=== PATIENT | female | born 1970 | race Caucasian/White ===

== ENCOUNTER → 2016-07-07 | Day surgery (SDC) | payer MEDICARE, MEDICAID ==
[~2016-07-07] VITALS: Ht 170.2 cm; Wt 107.7 kg
[~2016-07-07] MED LIST: *MEPERIDINE 25 MG INJ VIAL PERIprocedural Use ONLY ONE; *morphine SULFATE 8 MG/ML PERIprocedure ONLY ONE; ACETAMINOPHEN 1000 MG/100 ML VIAL IV ONE; ACETAMINOPHEN 1000 MG/100 ML VIAL IV SCH; AMIT8CAP6 PO; APREPITANT 40 MG CAP ONE; APREPITANT 40 MG CAP PO SCH; BUPIVACAINE/EPINEPHRINE 0.25% PF 30 ML VIAL INFIL ONE; CITA10TA4 PO; DO NOT ADM ANY ANTICOAGULANT DRUGS XX PRN; FAMOTIDINE 20 MG/2 ML VIAL ONE; INSULIN HUMAN REGULAR 1,000 UNITS/10 ML VIAL SQ PRN; LACTATED RINGER'S 1000 ML INJ 1,000 ML IV ONE; LACTATED RINGER'S 1000 ML IV SCH; METOPROLOL TARTRATE 25 MG TAB PO PRN; MIDAZOLAM HCL 2 MG/2 ML VIAL ONE; NEOSTIGMINE 3 MG/3 ML SYR IV ONE; ONDANSETRON HCL 4 MG/2 ML VIAL IV PUSH ONE; ONDANSETRON HCL 4 MG/2 ML VIAL IV PUSH PRN; ONDANSETRON HCL 4 MG/2 ML VIAL IV PUSH SCH; ONDANSETRON HCL 4 MG/2 ML VIAL ONE; PANT40TA3 PO; PROPOFOL 200 MG/20 ML AMP IV ONE; SODIUM CHLOR 0.9% 250 ML INJ 250 ML ONE; SODIUM CHLORID 0.9% 500 ML IV SCH; TOPA100T11 PO; VANCOMYCIN 1,250 MG/NS 250 ML (for 70-84 kg) IV SCH; VANCOMYCIN HCL 1000 MG VIAL ONE; fentaNYL CITRATE 250 MCG/5 ML AMP ONE; metroNIDAZOLE 500 MG INJ 100 ML IV ONE; metroNIDAZOLE 500 MG INJ 100 ML IV SCH; oxyCODONE/ACETAMINOPHEN 5 MG/325 MG TAB PO PRN
[2016-07-07 08:08] VITALS: BP 150/90; PULSE 62; RESP 20; O2SAT 100
[2016-07-07 14:32] VITALS: BP 122/65; PULSE 76; RESP 20; TEMP 96.9; O2SAT 98
--- NOTE | 2016-07-14 09:39 | MP ---
cc: DEONDRE GARCIA DATE OF SURGERY: 07/07/2016 1970 PREOPERATIVE DIAGNOSIS Abdominal pain. POSTOPERATIVE DIAGNOSIS Abdominal pain. PROCEDURE Laparoscopy with lysis of adhesion. SURGEON Deondre Garcia MD ANESTHESIA General endotracheal anesthesia. ESTIMATED BLOOD LOSS Scant. INDICATION This is a patient who underwent a laparoscopic vertical sleeve gastrectomy approximately 5 months ago. She was doing well, but has been unable to progress to solid foods. The patient had an endoscopy that revealed angulation of her stomach. She was brought in for evaluation laparoscopically after obtaining informed consent. FINDINGS Adhesions of stomach, to left lobe of the liver. No evidence of kinking or angulation of the stomach. The sleeve appeared to be in good orientation. The patient did have adhesions in her upper abdomen around her first portion of her duodenum as well as adhesions of her small bowel to the abdominal wall in the right lower quadrant. It was felt that these may have contributed to the patient's inability to eat and as such they were . SPECIMEN None. COMPLICATIONS None. OPERATION The patient was brought to the operating room, placed on the operating table in supine position. Bilateral sequential inflation device placed on lower extremity, general anesthesia instituted. The abdomen was prepped and draped sterilely. A point in the patient's periumbilical region was anesthetized with 0.25% Marcaine with epinephrine. A skin incision was made. A 5 mm OptiVu port was placed under direct vision and pneumoperitoneum created. Under direct vision a 5 mm left upper quadrant, a 5 mm right upper quadrant port was placed. Prior to placement of all ports the skin and peritoneum were anesthetized with 0.25% Marcaine with epinephrine. The abdominal cavity was inspected, findings as above. Using sharp dissection the first and second portion of the duodenum was freed from the liver. Care was taken not to injure the bowel during the dissection. Then attention was focused in the lower abdomen where the patient's small bowel was adhesed to the abdominal wall, was sharply using care not to enter the small bowel during dissection. Once adhesiolysis was completed the operation was terminated. CO2 was released. All ports were removed. All skin incisions were closed with 4-0 Monocryl. The abdominal wall was cleaned and sterile dressing was placed. The patient was awakened and taken to the recovery room stable. MD WHIT Edgar/HARJINDER /4:08 PM /9:26 AM
== END | disposition home or self-care (01) ==
LOC: HSDC 07:20
PROVIDERS: ATTEND Surgery
DX: K66.0 Peritoneal adhesions (postprocedural) (postinfection) (principal); R11.2 Nausea with vomiting, unspecified; R63.4 Abnormal weight loss; Z98.84 Bariatric surgery status
CPT/HCPCS: 00840; 44180; J0131; J2175; J2250; J2270; J2405; J2710; J3010; J3370; J7050; J7120; J8501

== ENCOUNTER 2016-08-16 19:50 | Emergency (ER) | payer MEDICARE, MEDICAID ==
[~2016-08-16] VITALS: Ht 170.2 cm; Wt 105.5 kg
[~2016-08-16 19:50] MED LIST changes: -*MEPERIDINE 25 MG INJ VIAL PERIprocedural Use ONLY ONE; -*morphine SULFATE 8 MG/ML PERIprocedure ONLY ONE; -ACETAMINOPHEN 1000 MG/100 ML VIAL IV ONE; -ACETAMINOPHEN 1000 MG/100 ML VIAL IV SCH; -APREPITANT 40 MG CAP ONE; -APREPITANT 40 MG CAP PO SCH; -BUPIVACAINE/EPINEPHRINE 0.25% PF 30 ML VIAL INFIL ONE; -DO NOT ADM ANY ANTICOAGULANT DRUGS XX PRN; -FAMOTIDINE 20 MG/2 ML VIAL ONE; -INSULIN HUMAN REGULAR 1,000 UNITS/10 ML VIAL SQ PRN; -LACTATED RINGER'S 1000 ML INJ 1,000 ML IV ONE; -LACTATED RINGER'S 1000 ML IV SCH; -METOPROLOL TARTRATE 25 MG TAB PO PRN; -MIDAZOLAM HCL 2 MG/2 ML VIAL ONE; -NEOSTIGMINE 3 MG/3 ML SYR IV ONE; -ONDANSETRON HCL 4 MG/2 ML VIAL IV PUSH ONE; -ONDANSETRON HCL 4 MG/2 ML VIAL IV PUSH PRN; -ONDANSETRON HCL 4 MG/2 ML VIAL IV PUSH SCH; -ONDANSETRON HCL 4 MG/2 ML VIAL ONE; -PROPOFOL 200 MG/20 ML AMP IV ONE; -SODIUM CHLOR 0.9% 250 ML INJ 250 ML ONE; -SODIUM CHLORID 0.9% 500 ML IV SCH; -VANCOMYCIN 1,250 MG/NS 250 ML (for 70-84 kg) IV SCH; -VANCOMYCIN HCL 1000 MG VIAL ONE; -fentaNYL CITRATE 250 MCG/5 ML AMP ONE; -metroNIDAZOLE 500 MG INJ 100 ML IV ONE; -metroNIDAZOLE 500 MG INJ 100 ML IV SCH; -oxyCODONE/ACETAMINOPHEN 5 MG/325 MG TAB PO PRN
[2016-08-16 19:52] VITALS: BP 164/86; PULSE 86; RESP 16; TEMP 98.5; O2SAT 100
[2016-08-16 20:25] VITALS: BP 140/85; PULSE 89; RESP 18; O2SAT 95
[2016-08-16] MEDS ORDERED: SODIUM CHLORIDE 0.9% FLUSH 5 ML FLUSH IVF PRN (20:30)
--- NOTE | 2016-08-16 20:38 | PD ---
HPI Chief Complaint: Chest Pain Time Seen by Provider: 20:32 Travel History International Travel<30 days: No Contact w/Intl Traveler<30days: No Traveled to known affect area: No History of Present Illness HPI 46-year-old female presents to the emergency department for evaluation of intermittent midsternal chest pain that is been ongoing for 1 month. She states is a squeezing feeling a physician with palpitations and dizziness. Patient currently rates her chest pain 5/10. Shows report history of increasing migraines, but states that she has a history of migraines and her Topamax was recently decreased. She states that she currently has a minor headache at this time is consistent with her typical migraine headaches. She denies any nausea or vomiting. Patient does report a history of a blood clot in her abdomen. She was on Xarelto up to 2 months ago and then was taken off. Patient also states she had her injury on her abdomen for adhesions approximately one month ago. Patient denies any cough or congestion. 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 PFSH Past Medical History Hx Anticoagulant Therapy: No (OFF FOR 1-2 MTHS) Asthma: No Autoimmune Disease: No Bipolar Disorder: Yes Anxiety: Yes Depression: Yes Cancer: Yes (colon cancer ) Cardiovascular Problems: Yes COPD: No Diabetes: No Diminished Hearing: No Endocrine: No Gastrointestinal Disorders: Yes (nv for several months, acid reflux) GERD: Yes Genitourinary: No Hepatitis: No Hiatal Hernia: Yes (sliding hiatal hernia) Immune Disorder: No Musculoskeletal: Yes (chronic back pain) Neurologic: No Psychiatric: Yes Reproductive: No Respiratory: No Migraines: Yes (hx of ) Sleep Apnea: No Thyroid Disease: No ?: Not Menopausal: No : 1 Para: 1 Tubal Ligation: Yes (1995) Past Surgical History Abdominal Surgery: Yes (lap band, gastric sleeve, colon resection 2013, c section, cholecystectomy) AICD: No Body Medical Devices: GASTRIC SLEEVE Cardiac Surgery: No Section: Yes (X1) Cholecystectomy: Yes (2002) Ear Surgery: No Endocrine Surgery: No Eye Surgery: No Genitourinary Surgery: No Gynecologic Surgery: Yes (tubal ligation) Joint Replacement: No Oral Surgery: No Pacemaker: No Other Surgery: Yes (CHRONIC DYSMENORRHEA & CRAMPING MONTHLY BEFORE MENSTRATION) Social History Alcohol Use: No Tobacco Use: No Substance Use: No Allergies-Medications (Allergen,Severity, Reaction): Coded Allergies: Sulfa (Verified Allergy, Severe, Rash, 08/16/16) Morphine (Verified Allergy, Unknown, Respiratory Failure, 08/16/16) Penicillin (Verified Allergy, Unknown, UNKNOWN REACTION, 08/16/16) Aspirin (Verified Adverse Reaction, Severe, VOMITING, 08/16/16) Red Dyes - Various (Verified Adverse Reaction, Severe, "GIVES ME MIGRAINES ", 08/16/16) Reported Meds & Prescriptions Reported Meds & Active Scripts Active Reported Citalopram (Citalopram Hydrobromide) 10 Mg Tab 10 Mg PO HS Pantoprazole (Pantoprazole Sodium) 40 Mg Tab 40 Mg PO HS Amitiza (Lubiprostone) 8 Mcg Cap 8 Mg PO HS Topamax (Topiramate) 100 Mg Tab 100 Mg PO HS Review of Systems Except as stated in HPI: all other systems reviewed are Neg Physical Exam Narrative GENERAL: Well-developed well-nourished female patient, ambulatory. Afebrile. SKIN: Warm and dry. HEAD: Normocephalic. Atraumatic. EYES: No scleral icterus. No injection or drainage. NECK: Supple, trachea midline. No JVD or lymphadenopathy. CARDIOVASCULAR: Regular rate and rhythm without murmurs, gallops, or rubs. RESPIRATORY: Breath sounds equal bilaterally. No accessory muscle use. Lungs sounds are clear to auscultation. GASTROINTESTINAL: Abdomen soft, non-tender, nondistended. MUSCULOSKELETAL: No cyanosis, or edema. Midsternal chest pain is reproducible with palpation. BACK: Nontender without obvious deformity. No CVA tenderness. Data Data Last Documented VS Vital Signs Date Time Temp Pulse Resp B/P Pulse Ox O2 Delivery O2 Flow Rate FiO2 08/16/16 20:25 89 18 140/85 95 08/16/16 20:16 Room Air 08/16/16 19:52 98.5 Orders Electrocardiogram (08/16/16 20:30) Basic Metabolic Panel (Bmp) (08/16/16 20:30) Ckmb (Isoenzyme) Profile (08/16/16 20:30) Complete Blood Count With Diff (08/16/16 20:30) D-Dimer (08/16/16 20:30) Magnesium (Mg) (08/16/16 20:30) Prothrombin Time / Inr (Pt) (08/16/16 20:30) Act Partial Throm Time (Ptt) (08/16/16 20:30) Troponin I (08/16/16 20:30) Chest, Single Ap (08/16/16 20:30) Ecg Monitoring (08/16/16 20:30) Bilateral Bp Monitoring (08/16/16 20:30) Iv Access Insert/Monitor (08/16/16 20:30) Oximetry (08/16/16 20:30) Oxygen Administration (08/16/16 20:30) Sodium Chloride 0.9% Flush (Ns Flush) (08/16/16 20:30) Labs Laboratory Tests Test 08/16/16 20:30 White Blood Count 6.2 TH/MM3 Red Blood Count 4.91 MIL/MM3 Hemoglobin 13.5 GM/DL Hematocrit 40.4 % Mean Corpuscular Volume 82.3 FL Mean Corpuscular Hemoglobin 27.5 PG Mean Corpuscular Hemoglobin 33.4 % Concent Red Cell Distribution Width 16.3 % Platelet Count 214 TH/MM3 Mean Platelet Volume 7.8 FL Neutrophils (%) (Auto) 62.0 % Lymphocytes (%) (Auto) 28.5 % Monocytes (%) (Auto) 8.0 % Eosinophils (%) (Auto) 1.1 % Basophils (%) (Auto) 0.4 % Neutrophils # (Auto) 3.8 TH/MM3 Lymphocytes # (Auto) 1.8 TH/MM3 Monocytes # (Auto) 0.5 TH/MM3 Eosinophils # (Auto) 0.1 TH/MM3 Basophils # (Auto) 0.0 TH/MM3 CBC Comment DIFF FINAL Differential Comment Prothrombin Time 10.9 SEC Prothromb Time International 1.0 RATIO Ratio Activated Partial 24.1 SEC Thromboplast Time D-Dimer Quantitative (PE/DVT) 0.26 MG/L FEU Sodium Level 138 MEQ/L Potassium Level 3.8 MEQ/L Chloride Level 107 MEQ/L Carbon Dioxide Level 24.6 MEQ/L Anion Gap 6 MEQ/L Blood Urea Nitrogen 18 MG/DL Creatinine 0.83 MG/DL Estimat Glomerular Filtration 74 ML/MIN Rate Random Glucose 95 MG/DL Calcium Level 8.9 MG/DL Magnesium Level 2.5 MG/DL Total Creatine Kinase 58 U/L Troponin I LESS THAN 0.02 NG/ML MDM Medical Decision Making Medical Screen Exam Complete: Yes Emergency Medical Condition: Yes Medical Record Reviewed: Yes Interpretation(s) Last Impressions Chest X-Ray 08/16/162029 Signed Impressions: Service Date/Time: Tuesday, August 16, 2016 20:29 - CONCLUSION: No acute disease. Ronnie Medrano MD Differential Diagnosis ACS vs. anxiety vs. GERD vs. chest wall pain vs. PE Narrative Course 46-year-old female presents to the emergency department for evaluation of chest pain is been intermittent over the past month associated palpitations and dizziness. Patient is allergic to aspirin and has not been given aspirin at this time due to allergy. Patient does report a history of blood clot has been off of Xarelto for 2 months. EKG, CBC, BMP, magnesium, CK, troponin, d-dimer, PTT, PTT/INR, chest x-ray are ordered and pending. EKG shows sinus rhythm, heart rate 72, no acute ST changes. CBC shows no acute abnormality. BMP is unremarkable. CK is 58. Troponin is less than 0.02. Magnesium is 2.5. D-dimer is normal at 0.26. Coags show no acute abnormality. Chest x-ray shows no acute disease. Laboratory findings and physical exam are reassuring. Patient's chest pain is easily reproducible palpation and patient has had a 4 month. She states she has appointment with her primary care physician and operator automated process next week. Patient would like to be discharged home. I think this is reasonable. Patient is instructed to return for any acute worsening of symptoms. Patient is agreeable. The patient was discharged in stable condition with instructions, including return instructions and follow up instructions. Diagnosis Primary Impression: Chest wall pain Referrals: Primary Care Physician call for appointment Patient Instructions: Chest Wall Pain (ED), General Instructions Additional Instructions: Follow-up with your primary care physician. Return to the emergency department for any acute worsening of symptoms. Med/Other Pt SpecificInfo: No Change to Meds Disposition: 01 DISCHARGE HOME Condition: Stable Clara Rosario MG Aug 16, 2016 20:38
[2016-08-16 21:01] LABS: AUTOMATED NEUTROPHIL # 3.8 TH/MM3 (1.8-7.7); BASOPHIL % 0.4 % (0.0-2.0); EOSINOPHIL # 0.1 TH/MM3 (0-0.4); EOSINOPHIL % 1.1 % (0.0-4.0); HEMATOCRIT 40.4 % (35.0-46.0); HEMO FLAGS DIFF FINAL; LYMPH % 28.5 % (9.0-44.0); LYMPHOCYTE # 1.8 TH/MM3 (1.0-4.8); MEAN CELL VOLUME 82.3 FL (80.0-100.0); MEAN CORPUSCULAR HEMOGLOBIN 27.5 PG (27.0-34.0); MEAN CORPUSCULAR HGB CONC 33.4 % (32.0-36.0); PLATELET COUNT 214 TH/MM3 (150-450); RED BLOOD COUNT 4.91 MIL/MM3 (4.00-5.30); RED CELL DISTRIBUTION WIDTH 16.3 % (11.6-17.2); WHITE BLOOD COUNT 6.2 TH/MM3 (4.0-11.0)
--- NOTE | 2016-08-16 21:03 | RADRPT ---
EXAM DATE/TIME: 08/16/2016 20:29 [facility] COMPARISON: CHEST SINGLE AP, November 05, 2015, 16:23. INDICATIONS : Chest Pain MEDICAL HISTORY : None. SURGICAL HISTORY : None. ENCOUNTER: Initial ACUITY: 1 day PAIN SCORE: 6/10 LOCATION: Bilateral chest FINDINGS: A single view of the chest demonstrates the lungs to be symmetrically aerated without evidence of mas s, infiltrate or effusion. The cardiomediastinal contours are unremarkable. Osseous structures are intact. CONCLUSION: No acute disease. Ronnie Medrano MD on August 16, 2016 at 21:00 Board Certified Radiologist. This report was verified electronically.
[2016-08-16 21:18] LABS: APTT (PATIENT) 24.1 SEC (24.3-30.1); PROTHROMBIN TIME - PATIENT 10.9 SEC (9.8-11.6)
[2016-08-16 21:29] LABS: ANION GAP 6 MEQ/L (5-15); BICARBONATE 24.6 MEQ/L (21.0-32.0); BLOOD UREA NITROGEN 18 MG/DL (7-18); CHLORIDE 107 MEQ/L (98-107); GLOMERULAR FILTRATION RATE 74 ML/MIN (>89); MAGNESIUM 2.5 MG/DL (1.5-2.5); POTASSIUM 3.8 MEQ/L (3.5-5.1); SODIUM (NA) 138 MEQ/L (136-145)
[2016-08-16 21:45] LABS: CREATINE KINASE 58 U/L (26-192)
--- NOTE | 2016-08-16 22:21 | PD ---
Physical Exam Date Seen by Provider: Aug 16, 2016 Narrative Patient presented for shortness of breath, dizziness, palpitations Data Data Last Documented VS Vital Signs Date Time Temp Pulse Resp B/P Pulse Ox O2 Delivery O2 Flow Rate FiO2 08/16/16 20:25 89 18 140/85 95 08/16/16 20:16 Room Air 08/16/16 19:52 98.5 Orders Electrocardiogram (08/16/16 20:30) Basic Metabolic Panel (Bmp) (08/16/16 20:30) Ckmb (Isoenzyme) Profile (08/16/16 20:30) Complete Blood Count With Diff (08/16/16 20:30) D-Dimer (08/16/16 20:30) Magnesium (Mg) (08/16/16 20:30) Prothrombin Time / Inr (Pt) (08/16/16 20:30) Act Partial Throm Time (Ptt) (08/16/16 20:30) Troponin I (08/16/16 20:30) Chest, Single Ap (08/16/16 20:30) Ecg Monitoring (08/16/16 20:30) Bilateral Bp Monitoring (08/16/16 20:30) Iv Access Insert/Monitor (08/16/16 20:30) Oximetry (08/16/16 20:30) Oxygen Administration (08/16/16 20:30) Sodium Chloride 0.9% Flush (Ns Flush) (08/16/16 20:30) Labs Laboratory Tests Test 08/16/16 20:30 White Blood Count 6.2 TH/MM3 Red Blood Count 4.91 MIL/MM3 Hemoglobin 13.5 GM/DL Hematocrit 40.4 % Mean Corpuscular Volume 82.3 FL Mean Corpuscular Hemoglobin 27.5 PG Mean Corpuscular Hemoglobin 33.4 % Concent Red Cell Distribution Width 16.3 % Platelet Count 214 TH/MM3 Mean Platelet Volume 7.8 FL Neutrophils (%) (Auto) 62.0 % Lymphocytes (%) (Auto) 28.5 % Monocytes (%) (Auto) 8.0 % Eosinophils (%) (Auto) 1.1 % Basophils (%) (Auto) 0.4 % Neutrophils # (Auto) 3.8 TH/MM3 Lymphocytes # (Auto) 1.8 TH/MM3 Monocytes # (Auto) 0.5 TH/MM3 Eosinophils # (Auto) 0.1 TH/MM3 Basophils # (Auto) 0.0 TH/MM3 CBC Comment DIFF FINAL Differential Comment Prothrombin Time 10.9 SEC Prothromb Time International 1.0 RATIO Ratio Activated Partial 24.1 SEC Thromboplast Time D-Dimer Quantitative (PE/DVT) 0.26 MG/L FEU Sodium Level 138 MEQ/L Potassium Level 3.8 MEQ/L Chloride Level 107 MEQ/L Carbon Dioxide Level 24.6 MEQ/L Anion Gap 6 MEQ/L Blood Urea Nitrogen 18 MG/DL Creatinine 0.83 MG/DL Estimat Glomerular Filtration 74 ML/MIN Rate Random Glucose 95 MG/DL Calcium Level 8.9 MG/DL Magnesium Level 2.5 MG/DL Total Creatine Kinase 58 U/L Troponin I LESS THAN 0.02 NG/ML MDM Supervised Visit with AGUSTÍN: Yes Narrative Course I, Dr. Riley, have reviewed the advance practice practitioner's documentation and am in agreement, met with the patient face to face, made the diagnosis, and the medical decision making was done by me. *My assessment and Findings: The patient was very nervous. She does not appear to be having any difficulty breathing. Diagnosis Primary Impression: Chest wall pain Referrals: Primary Care Physician call for appointment Patient Instructions: General Instructions, Chest Wall Pain (ED) Additional Instruction: Follow-up with your primary care physician. Return to the emergency department for any acute worsening of symptoms. Disposition: 01 DISCHARGE HOME Condition: Stable Mirian Riley MD Aug 16, 2016 22:21
[2016-08-16 22:31] VITALS: O2SAT 97
--- NOTE | 2016-08-17 14:10 | EKG ---
Date Performed: 08/16/2016 Time Performed: 20:30:57 PTAGE: 46 years EKG: Sinus rhythm Since previous tracing, no significant change noted NORMAL ECG PREVIOUS TRACING : 08/03/2003 10.53 DOCTOR: Long Thomas Interpretating Date/Time 08/17/2016 15:39:08
== END 2016-08-16 22:50 | disposition home or self-care (01) ==
LOC: NEPC 19:50
DX: R07.89 Other chest pain (principal); R00.2 Palpitations; R42 Dizziness and giddiness; R51 Headache; Z79.899 Other long term (current) drug therapy; Z85.038 Personal history of other malignant neoplasm of large intestine; Z86.79 Personal history of other diseases of the circulatory system; Z87.19 Personal history of other diseases of the digestive system; Z87.39 Personal history of other diseases of the musculoskeletal system and connective tissue; Z86.69 Personal history of other diseases of the nervous system and sense organs; Z86.59 Personal history of other mental and behavioral disorders
CPT/HCPCS: 71010; 80048; 82550; 83735; 84484; 85025; 85379; 85610; 85730; 93005

== ENCOUNTER 2017-08-24 13:30 | Emergency (ER) | payer MEDICARE, MEDICAID ==
[~2017-08-24 13:30] MED LIST changes: -TOPA100T11 PO; +TOPI100 PO
[2017-08-24] MEDS ORDERED: IOHEXOL 350 MG/ML 10 ML VIAL (for RAD DIAG) IVCONTRAST ONE (13:31)
[2017-08-24 13:34] VITALS: BP 127/66; PULSE 77; RESP 16; TEMP 98.4; O2SAT 100
[2017-08-24 14:10] LABS: AUTOMATED NEUTROPHIL # 4.2 TH/MM3 (1.8-7.7); BASOPHIL % 0.6 % (0.0-2.0); EOSINOPHIL # 0.1 TH/MM3 (0-0.4); EOSINOPHIL % 1.1 % (0.0-4.0); HEMATOCRIT 38.1 % (35.0-46.0); HEMOGLOBIN 12.5 GM/DL (11.6-15.3); LYMPHOCYTE # 1.2 TH/MM3 (1.0-4.8); MEAN CELL VOLUME 81.7 FL (80.0-100.0); MEAN CORPUSCULAR HEMOGLOBIN 26.9 PG (27.0-34.0); MEAN CORPUSCULAR HGB CONC 32.9 % (32.0-36.0); MEAN PLATELET VOLUME 7.6 FL (7.0-11.0); MONO % 10.2 % (0.0-8.0); MONOCYTE # 0.6 TH/MM3 (0-0.9); NEUT % 68.1 % (16.0-70.0); PLATELET COUNT 193 TH/MM3 (150-450); RED BLOOD COUNT 4.66 MIL/MM3 (4.00-5.30); RED CELL DISTRIBUTION WIDTH 15.9 % (11.6-17.2); WHITE BLOOD COUNT 6.2 TH/MM3 (4.0-11.0)
[2017-08-24 14:14] LABS: BILIRUBIN, URINE NEG (NEG); BLOOD, URINE NEG (NEG); GLUCOSE,URINE NEG (NEG); KETONE, URINE NEG (NEG); MUCUS URINE FEW /lpf (OCC); NITRITE,URINE NEG (NEG); PH, URINE 6.5 (5.0-8.5); SQUAMOUS EPITHELIAL CELL URINE 3 /hpf (0-5); URINE COLOR YELLOW (YELLW/STRAW); URINE LEUKOCYTE ESTERASE SMALL (NEG)
[2017-08-24] MEDS ORDERED: ONDANSETRON HCL 4 MG/2 ML VIAL IV PUSH ONE (14:15)
[2017-08-24] MEDS ORDERED: HYDROmorphone HCL PF 2 MG/ML VIAL IVS ONE (14:15)
[2017-08-24] MEDS ORDERED: SODIUM CHLOR 0.9% 1000 ML INJ 1,000 ML IV ONE (14:15)
--- NOTE | 2017-08-24 14:26 | PD ---
HPI Chief Complaint: Abdominal Pain Time Seen by Provider: 14:06 Travel History International Travel<30 days: No Contact w/Intl Traveler<30days: No Traveled to known affect area: No History of Present Illness HPI This is a 47-year-old female with a history of colon cancer, gastric sleeve placement, who presents today with complaints of right lower quadrant pain on and off 3 months. The patient reports the pain as worse over the last 24 hours. She states that she was seen at [facility] in [place] and had at that time had a CAT scan done that showed nothing. She states they told her that there was no obvious findings. The patient does give history that she has had previous abdominal surgery with adhesions. She reports she is cancer free from her colon cancer. She states that they removed a portion of her colon. There is no reported fevers, chills. The patient states that she was given pain medicine upon discharge last night but there was no diagnosis. I informed her at times that there is no diagnosis found however we order the test to rule out bad pathology. PFSH Past Medical History Hx Anticoagulant Therapy: No (OFF FOR 1-2 MTHS) Asthma: No Autoimmune Disease: No Bipolar Disorder: Yes Anxiety: Yes Depression: Yes Cancer: Yes (colon cancer ) Cardiovascular Problems: Yes COPD: No Diabetes: No Diminished Hearing: No Endocrine: No Gastrointestinal Disorders: Yes (nv for several months, acid reflux) GERD: Yes Genitourinary: No Hepatitis: No Hiatal Hernia: Yes (sliding hiatal hernia) Immune Disorder: No Musculoskeletal: Yes (chronic back pain) Neurologic: No Psychiatric: Yes Reproductive: No Respiratory: No Migraines: Yes Sleep Apnea: No Thyroid Disease: No ?: Not Menopausal: No : 1 Para: 1 Tubal Ligation: Yes (1995) Past Surgical History Abdominal Surgery: Yes (lap band, gastric sleeve, colon resection 2013, c section, cholecystectomy) AICD: No Body Medical Devices: GASTRIC SLEEVE Cardiac Surgery: No Section: Yes (X1) Cholecystectomy: Yes (2002) Ear Surgery: No Endocrine Surgery: No Eye Surgery: No Genitourinary Surgery: No Gynecologic Surgery: Yes (tubal ligation) Joint Replacement: No Oral Surgery: No Pacemaker: No Other Surgery: Yes (CHRONIC DYSMENORRHEA & CRAMPING MONTHLY BEFORE MENSTRATION) Social History Alcohol Use: No Tobacco Use: No Substance Use: No Allergies-Medications (Allergen,Severity, Reaction): Coded Allergies: Sulfa (Sulfonamide Antibiotics) (Unverified Allergy, Severe, Rash, 02/10/17 ) morphine (Unverified Allergy, Unknown, Respiratory Failure, 02/10/17) penicillin G (Unverified Allergy, Unknown, UNKNOWN REACTION, 02/10/17) aspirin (Unverified Adverse Reaction, Severe, VOMITING, 02/10/17) red dye (Unverified Adverse Reaction, Severe, "GIVES ME MIGRAINES", ) Reported Meds & Prescriptions Reported Meds & Active Scripts Active Hydrocodone-Acetaminophen 5-325 mg Tab 1 Tab PO Q6H PRN 4 Days Flagyl (Metronidazole) 500 Mg Tab 500 Mg PO TID 10 Days Cipro (Ciprofloxacin HCl) 500 Mg Tab 500 Mg PO BID 10 Days Reported Citalopram (Citalopram Hydrobromide) 10 Mg Tab 10 Mg PO HS Pantoprazole (Pantoprazole Sodium) 40 Mg Tab 40 Mg PO HS Amitiza (Lubiprostone) 8 Mcg Cap 8 Mg PO HS Topamax (Topiramate) 100 Mg Tab 100 Mg PO HS Review of Systems Except as stated in HPI: all other systems reviewed are Neg General / Constitutional: No: Fever HENT: No: Headaches, Lightheadedness Cardiovascular: No: Chest Pain or Discomfort, Palpitations Respiratory: No: Cough, Shortness of Breath Gastrointestinal: Positive: Nausea, Vomiting, Abdominal Pain (Right lower quadrant), Constipation Genitourinary: No: Frequency, Dysuria Musculoskeletal: No: Weakness, Pain Neurologic: No: Weakness, Dizziness, Headache Physical Exam Narrative GENERAL: Well-developed well-nourished female in no acute respiratory distress. SKIN: Focused skin assessment warm/dry. HEAD: Atraumatic. Normocephalic. EYES: No scleral icterus. No injection or drainage. ENT: No nasal bleeding or discharge. Mucous membranes pink and moist. NECK: Trachea midline. Supple. CARDIOVASCULAR: Regular rate and rhythm. No murmur appreciated. RESPIRATORY: No accessory muscle use. Clear to auscultation. Breath sounds equal bilaterally. GASTROINTESTINAL: Abdomen soft, nondistended. There is tenderness to palpation in her right lower quadrant. There is mild guarding with no rebound. No pulsatile masses appreciated. MUSCULOSKELETAL: No obvious deformities. No clubbing. No cyanosis. No edema. NEUROLOGICAL: Awake and alert. No obvious cranial nerve deficits. Motor grossly within normal limits. Normal speech. Data Data Last Documented VS Vital Signs Date Time Temp Pulse Resp B/P (MAP) Pulse Ox O2 Delivery O2 Flow Rate FiO2 08/24/17 13:34 98.4 77 16 127/66 (86) 100 Orders Orders Complete Blood Count With Diff (08/24/17 13:37) Comprehensive Metabolic Panel (08/24/17 13:37) Urinalysis - C+S If Indicated (08/24/17 13:37) Lipase (08/24/17 13:37) Ct Abd/Pel W Iv Contrast(Rout) (08/24/17 14:06) Iv Access Insert/Monitor (08/24/17 14:06) Ecg Monitoring (08/24/17 14:06) Oximetry (08/24/17 14:06) Sodium Chlor 0.9% 1000 Ml Inj (Ns 1000 M (08/24/17 14:15) Ondansetron Inj (Zofran Inj) (08/24/17 14:15) Hydromorphone Pf Inj (Dilaudid Pf Inj) (08/24/17 14:15) Oral Contrast - Adult (08/24/17 14:23) Diatrizoate Liq ( Gastromarya Liq) (08/24/17 14:28) Iohexol 350 Inj (Omnipaque 350 Inj) (08/24/17 13:31) Labs Laboratory Tests Test 08/24/17 13:54 08/24/17 13:58 Urine Color YELLOW Urine Turbidity CLEAR Urine pH 6.5 Urine Specific [place] 1.024 Urine Protein NEG mg/dL Urine Glucose (UA) NEG mg/dL Urine Ketones NEG mg/dL Urine Occult Blood NEG Urine Nitrite NEG Urine Bilirubin NEG Urine Urobilinogen LESS THAN 2.0 MG/DL Urine Leukocyte Esterase SMALL Urine RBC 1 /hpf Urine WBC 1 /hpf Urine Squamous Epithelial Cells 3 /hpf Urine Mucus FEW /lpf Microscopic Urinalysis Comment CULT NOT INDICATED White Blood Count 6.2 TH/MM3 Red Blood Count 4.66 MIL/MM3 Hemoglobin 12.5 GM/DL Hematocrit 38.1 % Mean Corpuscular Volume 81.7 FL Mean Corpuscular Hemoglobin 26.9 PG Mean Corpuscular Hemoglobin Concent 32.9 % Red Cell Distribution Width 15.9 % Platelet Count 193 TH/MM3 Mean Platelet Volume 7.6 FL Neutrophils (%) (Auto) 68.1 % Lymphocytes (%) (Auto) 20.0 % Monocytes (%) (Auto) 10.2 % Eosinophils (%) (Auto) 1.1 % Basophils (%) (Auto) 0.6 % Neutrophils # (Auto) 4.2 TH/MM3 Lymphocytes # (Auto) 1.2 TH/MM3 Monocytes # (Auto) 0.6 TH/MM3 Eosinophils # (Auto) 0.1 TH/MM3 Basophils # (Auto) 0.0 TH/MM3 CBC Comment DIFF FINAL Differential Comment Blood Urea Nitrogen 14 MG/DL Creatinine 0.61 MG/DL Random Glucose 96 MG/DL Total Protein 7.9 GM/DL Albumin 3.8 GM/DL Calcium Level 8.7 MG/DL Alkaline Phosphatase 96 U/L Aspartate Amino Transf (AST/SGOT) 19 U/L Alanine Aminotransferase (ALT/SGPT) 20 U/L Total Bilirubin 0.4 MG/DL Sodium Level 138 MEQ/L Potassium Level 4.1 MEQ/L Chloride Level 109 MEQ/L Carbon Dioxide Level 24.7 MEQ/L Anion Gap 4 MEQ/L Estimat Glomerular Filtration Rate 105 ML/MIN Lipase 130 U/L MDM Medical Decision Making Medical Screen Exam Complete: Yes Emergency Medical Condition: Yes Differential Diagnosis Appendicitis versus partial bowel obstruction versus adhesions versus gastroenteritis versus kidney stone Narrative Course This is a 47-year-old female history of colon cancer, presents today with complaints of right lower quadrant pain. The patient was seen yesterday at [facility] and had a CT scan that they report showed no findings. She presents today stating that she is still having right lower quadrant pain. There is no reported fevers, chills. There is no reported nausea vomiting diarrhea. The patient in fact states he gets constipation. White blood cell count was within normal limits. CT scan of the abdomen pelvis repeat showed evidence of enteritis in the right lower quadrant. There was postsurgical signs as well. There is no evidence of perforation or abscess. I discussed findings with the patient told her that we will start her on Cipro and Flagyl. I enforced the need for her to follow-up with GI doctor for follow- up. While this is possibly infectious, this could be recurrent cancer and with this, and the need for the follow-up with her GI specialist. The patient states she will make an appointment. She is instructed to return if she does any increased pain, fevers chills, vomiting diarrhea. I will give her 4 day of hydrocodone. Diagnosis Primary Impression: Enteritis Additional Impression: History of colon cancer Additional Instructions: Return if increased pain, fevers chills, nausea vomiting or any other recent concerns you. Follow-up with your GI specialist. Take antibiotics as prescribed. Hold your citalopram until antibiotics are complete. Med/Other Pt SpecificInfo: Prescription(s) given Scripts Hydrocodone-Acetaminophen (Hydrocodone-Acetaminophen) 5-325 mg Tab 1 TAB PO Q6H Y for PAIN for 4 Days, #16 TAB 0 Refills Prov: Kodak Gonzalez MD 08/24/17 Metronidazole (Flagyl) 500 Mg Tab 500 MG PO TID for Infection for 10 Days, TAB 0 Refills Prov: Kodak Gonzalez MD 08/24/17 Ciprofloxacin (Cipro) 500 Mg Tab 500 MG PO BID for Infection for 10 Days, #20 TAB 0 Refills Prov: Kodak Gonzalez MD 08/24/17 Disposition: 01 DISCHARGE HOME Condition: Stable Kodak Gonzalez MD Aug 24, 2017 14:26
[2017-08-24] MEDS ORDERED: DIATRIZOATE MEGLUM/DIATRIZOATE SOD 9 ML CUP ONE (14:28)
[2017-08-24 15:32] LABS: ALBUMIN 3.8 GM/DL (3.4-5.0); AST (GOT) 19 U/L (15-37); BICARBONATE 24.7 MEQ/L (21.0-32.0); BLOOD UREA NITROGEN 14 MG/DL (7-18); CALCIUM 8.7 MG/DL (8.5-10.1); CHLORIDE 109 MEQ/L (98-107); CREATININE 0.61 MG/DL (0.50-1.00); GLOMERULAR FILTRATION RATE 105 ML/MIN (>89); GLUCOSE,RANDOM 96 MG/DL (74-106); SODIUM (NA) 138 MEQ/L (136-145)
[2017-08-24 15:36] LABS: ALKALINE PHOSPHATASE 96 U/L (45-117); ALT (GPT) 20 U/L (10-53); TOTAL BILIRUBIN ADULT 0.4 MG/DL (0.2-1.0); TOTAL PROTEIN 7.9 GM/DL (6.4-8.2)
--- NOTE | 2017-08-24 16:44 | RADRPT ---
EXAM DATE/TIME: 08/24/2017 15:56 [place] COMPARISON: CT ABDOMEN & PELVIS W CONTRAST, December 27, 2015, 21:14. INDICATIONS : Severe right lower quadrant pain for three months. IV CONTRAST: 81 cc Omnipaque 350 (iohexol) IV ORAL CONTRAST: Prescribed oral contrast ingested. RADIATION DOSE: 26.05 CTDIvol (mGy) MEDICAL HISTORY : Cardiovascular disease. Hernia, hiatal. SURGICAL HISTORY : Colon resection. Gastric bypass. Cholecystectomy. ENCOUNTER: Initial ACUITY: 3 months PAIN SCALE: 9/10 LOCATION: Right lower quadrant TECHNIQUE: Volumetric scanning of the abdomen and pelvis was performed. Using automated exposure control and ad justment of the mA and/or kV according to patient size, radiation dose was kept as low as reasonably achievable to obtain optimal diagnostic quality images. DICOM format image data is available electro nically for review and comparison. FINDINGS: LOWER LUNGS: The visualized lower lungs are clear. LIVER: Liver demonstrates heterogeneous enhancement of check a leg peripherally. 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 There is mild central intrahepatic bile duct dila tation with stable mildly dilated common bile duct measuring approximately 9 mm distally. There is a low density cystic type lesion in the gallbladder fossa region which is stable. SPLEEN: Mildly enlarged measuring 14 cm in length. No lesion is seen. PANCREAS: Within normal limits. KIDNEYS: Normal in size and shape. There is no mass, stone or hydronephrosis. There is a simple appearing cys t in the right mid kidney measuring 18 mm as well as an incidental 7 mm low density lesion that is to o small to characterize. ADRENAL GLANDS: There is a stable fat containing right adrenal gland mass measuring 8 mm. Left adrenal gland is withi n normal limits. VASCULAR: There is no aortic aneurysm. BOWEL/MESENTERY: Small moderate size hiatal hernia is present. Staple line is present along the stomach characteristic of gastric sleeve procedure. Small bowel demonstrates no abnormality. There has been prior right hem icolectomy. The area of anastomosis demonstrates no acute finding. There is no free intraperitoneal a ir. There is a small volume of free fluid in the posterior cul-de-sac within the pelvis. There is ind uration of the fat adjacent to a segment of small bowel in the right lower clot or an hour there is a bowel staple line from prior surgery. ABDOMINAL WALL: No acute abnormality. RETROPERITONEUM: There is no lymphadenopathy. BLADDER: No wall thickening or mass. REPRODUCTIVE: No acute abnormality. INGUINAL: There is no lymphadenopathy or hernia. MUSCULOSKELETAL: No acute abnormality. CONCLUSION: 1. There is mild inflammation adjacent to a segment of small bowel in the right lower quadrant. A sta ple line is present in this region indicating prior surgery. This may represent a nonspecific enterit is. Small volume of free fluid is present in the pelvis. Otherwise, no acute finding is identified. 2. Persistent heterogeneous enhancement of the liver with absent left portal vein. There is stable mi ld biliary ductal dilatation in this patient post cholecystectomy. 3. Other nonacute findings include hiatal hernia, mild splenomegaly, and 8mm right adrenal gland myel olipoma. Kurtis Dent MD on August 24, 2017 at 16:34 Board Certified Radiologist. This report was verified electronically.
[2017-08-24] MEDS ORDERED: HYDR-3516 PO (17:56)
[2017-08-24] MEDS ORDERED: CIPR-9 PO (17:56)
[2017-08-24] MEDS ORDERED: METR-1 PO (17:56)
== END 2017-08-24 18:33 | disposition home or self-care (01) ==
LOC: NEPC 13:30
DX: K52.9 Noninfective gastroenteritis and colitis, unspecified (principal); K21.9 Gastro-esophageal reflux disease without esophagitis; Z85.038 Personal history of other malignant neoplasm of large intestine
CPT/HCPCS: 74177; 80053; 81001; 83690; 85025; 96374; 96375; 99284; J1170; J2405; J7030; Q9963; Q9967